=== PATIENT | female | born 1995 ===

== ENCOUNTER 2023-12-07 15:11 | Outpatient (AMB) | payer MEDICAID, SELFPAY ==
--- NOTE | 2023-12-07 15:15 | MHC.OFFVIS ---
Vital Signs 12/07/23 15:25 Height 5 ft 4 in Weight 159 lb 13.362 oz BMI 27.4 BP 115/70 Blood Pressure Location Rt brachial Position Sitting Respiration 16 Pulse 84 Pulse Source Pulse Oximeter Pulse Oximetry (%) 97 Oxygen Delivery Method Room Air Intake Visit Reasons: Joint Pain/lm Intake Note: Patient presents for joint pain. Sometimes feel pain and numbness in hands, knees, under feet and toes. It's been happening for 3 years. Not taking medication for it. Allergies famotidine [From Pepcid] Allergy (Mild, Verified 12/07/23 15:22) Rash Medication List - Last Reconciled 12/07/23 by Zeina Stanley MD norgestimate-ethinyl estradiol 0.18/0.215/0.25 mg-35 mcg (28) (Tri-Estarylla) 1 tab PO DAILY HPI Comments Details: This is a 28-year-old female since for evaluation of polyarthralgia. For the last 3 years patient would have episodes of pain, swelling and numbness of her fingers, toes, these episodes occur every few weeks and last 1 day. Denies any history suggestive of Raynaud's. She states that she was diagnosed with psoriasis of her scalp as a child and since then she would have intermittent flaking of her scalp. She denies psoriasis otherwise. She is unaware of any family history of an autoimmune rheumatic disease. Denies any history of DVT/PE. She has never been and never attempted . [facility] Medical History (Updated 12/07/23 @ 16:50 by Zeina Stanley MD) Psoriasis Family History (Updated 12/07/23 @ 15:24 by Ly Espino [facility]) Maternal Grandmother Diabetes Hypertension Social History (Updated 12/07/23 @ 15:34 by Zeina Stanley MD) Household Members: Spouse Housing: Apartment Alcohol intake: current Comment: Occasionally Patient Tobacco Use Status: Never used Tobacco Current occupational status: unemployed Current occupation: associate's degree liberal arts Female Reproductive History Menstrual Total pregnancies: 0 Review of Systems Musc Reports arthralgias, Reports joint swelling, Reports numbness and Reports stiffness Skin/Breast Details: Flakes on scalp Neuro Reports numbness Physical Exam Vital Signs: Last Vital Signs Pulse 84 12/07/23 15:25 Resp 16 12/07/23 15:25 BP 115/70 12/07/23 15:25 Pulse Ox 97 12/07/23 15:25 Oxygen Delivery Method Room Air 12/07/23 15:25 BMI result Body Mass Index 27.4 Const General: cooperative, healthy appearing and comfortable Nutritional Appearance: overweight Orientation/consciousness: patient oriented x3 Limitations: no limitations HEENT Head: Yes normocephalic and Yes atraumatic Mouth: moist mucous membranes Resp Effort & Inspection: normal respiratory effort and able to speak in complete sentences Auscultation: clear to auscultation bilaterally Cardio Rate: regular rate Rhythm: regular rhythm Skin Other: No psoriasis noted on scalp Psoriasis patch behind right ear Neuro General: patient oriented x3 Extrem Other: No active synovitis today No swollen joints noted Normal nailfold capillaroscopy Results Reviewed Results Reviewed: Labs 02/2023? RF/RUBEN IFA TSH 2.88 ESR 6 CRP normal CMP unremarkable CBC unremarkable Assessment & Plan Assessment & Plan (1) Polyarthralgia: Code(s): M25.50 - Pain in unspecified joint Category: Medical Plan: This is a 28-year-old female who presents for evaluation of episodes of joint pain swelling and numbness last 3 years. States that she was diagnosed with psoriasis of her scalp as a child. On exam today I think she has a psoriasis patch behind her right ear. I will order labs to further evaluate for underlying inflammatory arthritis. Follow-up after blood work is completed Plan I spent 48 minutes reviewing patient's chart, evaluating patient, ordering diagnostic workup, counseling patient and documenting in the chart Orders: Orders Cyclic Citrullinated Peptide Today M25.50 - Pain in unspecified joint Complete Blood Count Auto Diff Today M25.50 - Pain in unspecified joint Comprehensive Met. Panel Today M25.50 - Pain in unspecified joint Coding Level of Care Code New Pt Level 4 (65472) Diagnoses Polyarthralgia M25.50
[2023-12-07 15:25] VITALS: BP 115/70; PULSE 84; RESP 16; O2SAT 97; BMI 27.4
== END 2023-12-07 15:48 | disposition home or self-care (01) ==
PROVIDERS: PCP Family Medicine; Visit Provider Student in an Organized Health Care Education/Training Program
DX: M25.50 Pain in unspecified joint (principal)
CPT/HCPCS: 99204

== ENCOUNTER → 2023-12-07 15:11 | Outpatient (BNVA) | payer MEDICAID, SELFPAY | PROVIDERS: PCP Family Medicine; Visit Provider Student in an Organized Health Care Education/Training Program | DX: M25.50 Pain in unspecified joint (principal) | CPT/HCPCS: 99202 ==